=== PATIENT | female | born 1970 | race African-American/Black ===

== ENCOUNTER → 2016-11-11 | Outpatient (CLI) | payer MEDICARE, OTHER ==
[~2016-11-11] MED LIST: ALBUTEROL17 G1 IH; ALBUTEROL17 GM INH; AMBIEN PO; ATENOLOL25 MG PO; BYETTA10 MCG/0.0 INJ; CYMBALTA PO; CYMBALTA30 MG PO; DARVOCET-N 1001 TAB PO; DELSYM30 MG/5 ML PO; FLEXERIL10 MG PO; FUROSEMIDE40 MG PO; HYDROCODON-ACE1 EACH PO; IBUPROFEN PO; KCL PO; LANTUS100 U/ML SUBQ; LASIX PO; LIPITOR; LISINOPRIL10 MG PO; LYRICA PO; MEDROL4 MG/DOSE- PO; METOPROLOL SUCC25 MG PO; NEURONTIN600 MG PO; NICOTINE TRANSD21 MG EXT; PAXIL PO; PREDNISONE PO; ROBAFEN AC SYR120 M1 PO; SAVELLA50 MG PO; TYLENOL325 M1 PO; ULTRAM PO; VIBRAMYCIN100 M1 PO; VICODIN 5/500 T1 TAB PO; VITAMIN B 6; ZANAFLEX4 M1 PO
--- NOTE | ~2016-11-11 | MR104 ---
[facility] A Service of [facility] RADIOLOGY TEXT RESULTS PATIENT: ARFAL STEPHEN LOCATION: [facility] : 72 UNIT #: [id number] AGE: [address]: To Riddle MD SEX: F ORDER DR: [id number] [address] [address] [id number] O MR#: [id number] Acc #: [id number] NAME: RAFAL STEPHEN : 1970 SEX: F STUDY DATE/TIME: 11/11/2016 8:48 UNIT: [facility] ROOM: STUDY DESCRIPTION: MR Knee Wo Contrast Rt Attending Physician: To Riddle M.D. Referring Physician: To Riddle M.D. Ordering Physician: To Riddle M.D. Primary Care Physician: Juany Hung Aprn [facility] CENTER REPORT This report is preliminary unless electronic signature is present. EXAM Right knee MRI without contrast 11/11/2016 HISTORY 45-year-old female with right knee pain for 5 years. No prior right knee surgery. COMPARISON Knee x-rays 12/11/2015 and 11/08/2016 TECHNIQUE Routine unenhanced multiplanar, multisequence high field MR imaging of the right knee was performed. FINDINGS There is a vertical radial tear involving the posterior horn of the medial meniscus. This results in partial extrusion of the body segment from the medial joint line. There is also a suspected small horizontal oblique undersurface tear at the junction the posterior horn/body segment. Lateral meniscus is intact. Cruciate and collateral ligaments are intact. Extensor mechanism is intact. Small joint effusion with mild synovial proliferation. There is a multilobulated popliteal cyst measuring at least 6.3 cm in length. There is extensive full-thickness articular cartilage loss throughout the lateral patellar facet with [id number] grade chondral thinning of the median ridge and medial patellar facet. 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 Lateral compartment articular cartilage is intact. There is extensive full-thickness articular cartilage loss throughout the medial compartment [facility] A Service of [facility] RADIOLOGY TEXT RESULTS PATIENT: RAFAL STEPHEN LOCATION: [facility] : 72 UNIT #: [id number] AGE: [address]: To Riddle MD SEX: F ORDER DR: with subchondral marrow edema in the medial femoral condyle and medial tibial plateau. Small marginal osteophytes at the medial joint line. Remainder of the bone marrow signal is within expected limits. Visualized musculature is unremarkable. IMPRESSION 1. Vertical radial tear of posterior horn medial meniscus resulting in partial extrusion of the body segment from medial joint line. There is a questionable small horizontal oblique undersurface tear at the junction of the posterior horn/body segment. 2. No acute ligament injury. 3. Advanced medial compartment arthrosis and patellofemoral arthrosis, detailed above. 4. Small joint effusion with mild synovial proliferation. 6.3 cm popliteal cyst. 1. Dictated by... Kyle Haynes M.D. THIS IS AN ELECTRONICALLY VERIFIED REPORT Kyle Haynes M.D. at 11/12/2016 5:02 PM Nisreen TD: 11/12/2016 13:19 JOB #: [id number] MRI CENTER REPORT Page 1 of 1
== END | disposition home or self-care (01) ==
LOC: SMRI 08:22
DX: M17.11 Unilateral primary osteoarthritis, right knee (principal); M25.461 Effusion, right knee; M71.21 Synovial cyst of popliteal space [Baker], right knee
CPT/HCPCS: 73721

== ENCOUNTER → 2016-11-12 | Outpatient (CLI) | payer OTHER ==
--- NOTE | ~2016-11-12 | NM8 ---
[facility] A Service [facility] RADIOLOGY TEXT RESULTS PATIENT: RAFAL STEPHEN LOCATION: [facility] : 72 UNIT #: [id number] AGE: [address]: To Riddle MD SEX: F ORDER DR: [id number] [facility]. [place], [place] [address] [id number] O MR#: [id number] Acc #: [id number] NAME: RAFAL STEPHEN : 1970 SEX: F STUDY DATE/TIME: 11/12/2016 11:09 UNIT: [facility] ROOM: STUDY DESCRIPTION: NM Bone or Joint Whole Body Attending Physician: To Riddle M.D. Referring Physician: To Riddle M.D. Ordering Physician: To Riddle M.D. Primary Care Physician: Juany Hung Aprn [facility] MEDICAL IMAGING REPORT This report is preliminary unless electronic signature is present EXAM Whole-body bone scan HISTORY A 45-year-old female having both knees replaced, bilateral knee pain. COMPARISON Bilateral knee films 11/08/2016 FINDINGS Whole-body and selected spot images were performed of the axial and appendicular skeleton following the intravenous administration of 35.4 mCi technetium 99m MDP. Examination demonstrates increased uptake within both knees primarily well mineralized into the medial compartment of both knees corresponding to moderately advanced medial compartment arthrosis as noted on conventional radiographs. There is increased uptake within the left midfoot and right first MTP joint most likely degenerative in nature. There is also abnormal increased uptake within the right maxilla, best seen on the anterior acquisitions. This could be related underlying periodontal disease or dental surgery. Correlate with clinical history. Bilateral renal activity normal bladder activity noted. IMPRESSION 1. Increased uptake within both knees primarily within the medial compartment and corresponding to medial compartment arthrosis as noted on conventional radiographs. 2. Abnormal uptake within the left midfoot and right great toe most likely reflecting underlying degenerative arthropathy. 3. Abnormal increased uptake within the right maxilla. This may be related to prior dental disease or dental surgery though an active [facility] A Service [facility] RADIOLOGY TEXT RESULTS PATIENT: RAFAL STEPHEN LOCATION: [facility] : 72 UNIT #: [id number] AGE: [address]: To Riddle MD SEX: F ORDER DR: process not excluded. Recommend correlation with clinical history and further dental evaluation may be warranted. Dictated by... Von Fish M.D. THIS IS AN ELECTRONICALLY VERIFIED REPORT Von Fish M.D. at 11/15/2016 7:27 AM Ollie TD: 11/12/2016 21:03 JOB #: [id number] MEDICAL IMAGING REPORT Page 1 of 1 COPY
== END | disposition home or self-care (01) ==
LOC: CNUC 07:55
DX: M17.10 Unilateral primary osteoarthritis, unspecified knee (principal); R93.7 Abnormal findings on diagnostic imaging of other parts of musculoskeletal system
CPT/HCPCS: 78306; A9503